=== PATIENT | female | born 1965 | race Caucasian/White ===

== ENCOUNTER 2018-01-16 13:24 | Inpatient (IN) | payer OTHER ==
[2018-01-16 16:18] VITALS: BMI 18.8
--- NOTE | 2018-01-16 20:16 | HP ---
COWS - Scale Resting Pulse: 1= [place] 81-100 Sweatin=Flushed/Facial Moisture Restless Observation: 5= Unable to Sit Still Pupil Size: 1= Pupils >than Normal Bone or Joint Aches: 4=Acute Joint/Muscle Pain Runny Nose/ Eye Tearin= Nasal Congestion GI Upset > 30mins: 2= Nausea/Diarrhea Tremor Observation: 1= Tremor [place], Not Seen Yawning Observation: 2= >3x During Session Anxiety or Irritability: 2=Irritable/Anxious Goose Flesh Skin: 0=Smooth Skin COWS Score: 21 Admission [facility] Chief Complaint: C/O WITHDRAWAL SX'S. SEEKING DETOX FOR HEROIN DEPENDENCE Allergies/Adverse Reactions: Allergies Allergy/AdvReac Type Severity Reaction Status Date / Time No Known Allergies Allergy Verified 01/16/18 20:10 History of Present Illness: 52 Y.O. FEMALE WITH LONG HX/O OPIOID DEPENDENCE HER FOR DETOX TXMENT. CLIENT REORTS LAST DETOX 6 MONTHS AGO. SHE IS NEW TO [facility]. DENIES ANY SIGNIFICANT PERIOD OF CLEAN TIME. SELF REFERRED. DENIES LEGALS - Ebola screening Have you traveled outside of the country in the last 21 days: No (N) Have you had contact with anyone from an Ebola affected area: No Have you been sick,other than usual withdrawal symptoms: No Do you have a fever: No - Review of Systems Constitutional: Chills, Loss of Appetite, Malaise, Night Sweats, Changes in sleep EENT: reports: Nose Congestion, Dental Problems (MISSING TEETH) Respiratory: reports: No Symptoms reported Cardiac: reports: No Symptoms Reported GI: reports: Nausea, Poor Appetite, Poor Fluid Intake, Abdominal cramping : reports: No Symptoms Reported Musculoskeletal: reports: Joint Pain, Neck Pain Integumentary: reports: No Symptoms Reported Neuro: reports: No Symptoms reported Endocrine: reports: No Symptoms Reported Hematology: reports: No Symptoms Reported Psychiatric: reports: Anxious, other (BIPOLAR) Other Systems: Reviewed and Negative Patient History - Patient Medical History Hx Anemia: No Hx Asthma: No Hx Chronic Obstructive Pulmonary Disease (COPD): No Hx Cancer: No Hx Cardiac Disorders: No Hx Congestive Heart Failure: No Hx Hypertension: No Hx Pacemaker: No HX Cerebrovascular Accident: No Hx Seizures: No Hx Dementia: No Hx Diabetes: No Hx Gastrointestinal Disorders: No Hx Liver Disease: No Hx Genitourinary Disorders: No Hx Sexually Transmitted Disorders: No Hx Renal Disease (ESRD): No Hx Thyroid Disease: No Hx Human Immunodeficiency Virus (HIV): No Hx Hepatitis C: No Hx Depression: No Hx Suicide Attempt: No Hx Bipolar Disorder: Yes (NON COMPLIANT WITH MEDS) Hx Schizophrenia: No Other Medical History: ANXIETY - Patient Surgical History Past Surgical History: No - PPD History Previous Implant?: Yes Documented Results: Negative w/o proof PPD to be Administered?: Yes - Reproductive History Patient is a Female of Child Bearing Age (11 -55 yrs old): Yes LMP comment: 2016 Patient : No ([place] [facility] [place] - Smoking Cessation Smoking history: Former smoker Have you smoked in the past 12 months: No Cigars Per Day: 0 Initiated information on smoking cessation: No - Substance & Tx. History Hx Alcohol Use: No Hx Substance Use: Yes Substance Use Type: Cocaine, Heroin Hx Substance Use Treatment: Yes ([facility]) - Substances Abused HEROIN Route: Inhalation Frequency: Daily Amount used: $50 Age of first use: 17 Date of Last Use: 01/15/18 COCAINE Route: Inhalation Frequency: 3-6 times per week Amount used: $20 Age of first use: 51 Date of Last Use: 01/15/18 Family Disease History - Family Disease History Family History: Denies Admission Physical Exam S - Vital Signs Vital Signs: Vital Signs - 24 hr 01/16/18 16:09 Temperature 97.8 F Pulse Rate 92 H Respiratory 18 Rate Blood Pressure 107/65 - Physical General Appearance: Yes: Appropriately Dressed, Mild Distress, Tremorous, Irritable, Anxious HEENTM: Yes: EOMI, Normocephalic, ECTOR, Pharynx Normal, Nasal Congestion, Other (MISSING TEETH) Respiratory: Yes: Chest Non-Tender, Lungs Clear, Normal Breath Sounds, No Respiratory Distress, No Accessory Muscle Use Neck: Yes: No masses,lesions,Nodules, Supple, Trachea in good position Breast: Yes: Breast Exam Deferred Cardiology: Yes: Regular Rhythm, Regular Rate, S1, S2 Abdominal: Yes: Normal Bowel Sounds, Non Tender, Flat, Soft Genitourinary: Yes: Within Normal Limits Back: Yes: Normal Inspection Musculoskeletal: Yes: full range of Motion, Gait Steady Extremities: Yes: Normal Range of Motion, Non-Tender, Tremors Neurological: Yes: manager call center II-XII NML intact, Fully Oriented, Alert, Motor Strength 5/5 Integumentary: Yes: Warm, Other (FLUSHED FACE) Lymphatic: Yes: Within Normal Limits - Diagnostic (1) Opioid dependence with withdrawal Current Visit: Yes Status: Chronic (2) Cocaine dependence, uncomplicated Current Visit: Yes Status: Chronic Cleared for Admission [facility] - Detox or Rehab [facility] Level of Care: Medically Managed Detox Regimen/Protocol: Methadone [facility] Breath Alcohol Content Breath Alcohol Content: 0 Urine Pregancy Test - Result Urine Test Results: Negative- NO Line Present Urine Drug Screen - Results Drug Screen Negative: No Urine Drug Screen Results: MARGRET-Cocaine, OPI-Opiates, BAR-Barbiturates
[2018-01-16] MEDS ORDERED: METHADONE HCL 10 MG TABLET (FOR DETOX USE ONLY) PO ONE ×2 (20:29→23:00)
[2018-01-16] MEDS ORDERED: LOPERAMIDE HCL 2 MG CAPSULE PO PRN (20:29)
[2018-01-16] MEDS ORDERED: MAGNESIUM HYDROX 2400MG/30ML ORAL SUSPENSION 30 ML CUP PO PRN (20:29)
[2018-01-16] MEDS ORDERED: P-EPHED 60MG/TRIPROLIDI 2.5MG TABLET PO PRN (20:29)
[2018-01-16] MEDS ORDERED: MENTHOL/PHENOL 1 EACH UD MM PRN (20:29)
[2018-01-16] MEDS ORDERED: IBUPROFEN 400 MG TABLET (FP) PO PRN (20:29)
[2018-01-16] MEDS ORDERED: MAG HYDROX/AL HYDROX/SIMETH 30 ML UNIT-DOSE CUP PO PRN (20:29)
[2018-01-16] MEDS ORDERED: guaiFENesin/D-METHORPHAN HB 10 ML UNIT-DOSE CUPS PO PRN (20:29)
[2018-01-16] MEDS ORDERED: MAGNESIUM CITRATE 300 ML BOTTLE PO PRN (20:29)
[2018-01-16] MEDS ORDERED: NICOTINE POLACRILEX 2 MG GUM BC PRN (20:29)
[2018-01-16] MEDS ORDERED: ACETAMINOPHEN 325 MG TABLET (FP) PO PRN (20:29)
[2018-01-16] MEDS: diazePAM 5 MG TABLET PO PRN (22:29)
[2018-01-16] MEDS: THIAMINE HCL 100 MG TABLET (FP) PO SCH (22:30)
[2018-01-17 00:36] LABS: URINE APPEARANCE TURBID; URINE BILIRUBIN NEGATIVE (NEGATIVE); URINE BLOOD NEGATIVE (NEGATIVE); URINE COLOR YELLOW; URINE GLUCOSE (UA) NEGATIVE (NEGATIVE); URINE KETONE NEGATIVE (NEGATIVE); URINE NITRITE NEGATIVE (NEGATIVE); URINE PROTEIN NEGATIVE (NEGATIVE); URINE UROBILINOGEN NEGATIVE mg/dL (0.2-1.0)
[2018-01-17 00:38] LABS: URINE LEUK ESTERASE 3+ (NEGATIVE)
[2018-01-17 00:45] LABS: EPI CELLS RARE /HPF (FEW); YEAST MANY
[2018-01-17] MEDS ORDERED: METHADONE HCL 10 MG TABLET (FOR DETOX USE ONLY) PO ONE (10:00)
[2018-01-17 10:04] LABS: HEMATOCRIT 34.2 % (32.4-45.2); HEMOGLOBIN 11.4 GM/dL (10.7-15.3); MCH 28.8 pg (25.7-33.7); MCHC 33.2 g/dl (32.0-36.0); MEAN CELL VOLUME 86.9 fl (80-96); MEAN PLT VOLUME 7.8 fl (7.5-11.1); PLATELET COUNT 216 K/MM3 (134-434); RBC 3.94 M/mm3 (3.60-5.2); RDW 13.5 % (11.6-15.6); WHITE BLOOD COUNT 3.6 K/mm3 (4.0-10.0)
[2018-01-17 10:13] LABS: ANION GAP 2 (8-16); BILIRUBIN,TOTAL 0.1 mg/dL (0.2-1.0); BLOOD UREA NITROGEN 23 mg/dL (7-18); CALCIUM 7.9 mg/dL (8.5-10.1); CHLORIDE 115 mmol/L (98-107); CO2 29 mmol/L (21-32); GLUCOSE,RANDOM 92 mg/dL (74-106); SODIUM 146 mmol/L (136-145)
[2018-01-17 10:15] LABS: ALK PHOS 75 U/L (45-117); CREATININE 0.7 mg/dL (0.55-1.02); SGOT/AST 9 U/L (15-37); SGPT/ALT 15 U/L (12-78); TOT PROT 5.3 g/dl (6.4-8.2)
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
[2018-01-17] MEDS: PRENATAL VITAMINS W/ FOLIC ACID TABLET (FP) PO SCH (10:58)
--- NOTE | 2018-01-17 14:02 | PN ---
BHS COWS - Scale Resting Pulse: 0= [place] 80 or Below Sweatin= Chills/Flushing Restless Observation: 3= Extraneous Movement Pupil Size: 1= Pupils >than Normal Bone or Joint Aches: 2= Severe Diffuse Aches Runny Nose/ Eye Tearin= Runny Nose/Eyes GI Upset > 30mins: 2= Nausea/Diarrhea Tremor Observation of Outstretched Hands: 2= Slight Tremor Visible Yawning Observation: 2= >3x During Session Anxiety or Irritability: 2=Irritable/Anxious Goose Flesh Skin: 3=Piloerection COWS Score: 20 BHS Progress Note (SOAP) Subjective: body aches joints pain sweat sleeplessness tremor restlessness anxiety irritable running nose Objective: 01/17/18 14:02 Vital Signs Temperature 98.1 F 01/17/18 10:00 Pulse Rate 73 01/17/18 10:00 Respiratory Rate 18 01/17/18 10:00 Blood Pressure 107/56 01/17/18 10:00 O2 Sat by Pulse Oximetry (%) Laboratory Last Values WBC 3.6 K/mm3 (4.0-10.0) L 01/17/18 07:20 RBC 3.94 M/mm3 (3.60-5.2) 01/17/18 07:20 Hgb 11.4 GM/dL (10.7-15.3) 01/17/18 07:20 Hct 34.2 % (32.4-45.2) 01/17/18 07:20 MCV 86.9 fl (80-96) 01/17/18 07:20 MCH 28.8 pg (25.7-33.7) 01/17/18 07:20 MCHC 33.2 g/dl (32.0-36.0) 01/17/18 07:20 RDW 13.5 % (11.6-15.6) 01/17/18 07:20 Plt Count 216 K/MM3 (134-434) 01/17/18 07:20 MPV 7.8 fl (7.5-11.1) 01/17/18 07:20 Sodium 146 mmol/L (136-145) H 01/17/18 07:20 Potassium 4.0 mmol/L (3.5-5.1) 01/17/18 07:20 Chloride 115 mmol/L (98-107) H 01/17/18 07:20 Carbon Dioxide 29 mmol/L (21-32) 01/17/18 07:20 Anion Gap 2 (8-16) L 01/17/18 07:20 BUN 23 mg/dL (7-18) H 01/17/18 07:20 Creatinine 0.7 mg/dL (0.55-1.02) 01/17/18 07:20 Creat Clearance w eGFR > 60 (>60) 01/17/18 07:20 Random Glucose 92 mg/dL (74-106) 01/17/18 07:20 Calcium 7.9 mg/dL (8.5-10.1) L 01/17/18 07:20 Total Bilirubin 0.1 mg/dL (0.2-1.0) L 01/17/18 07:20 AST 9 U/L (15-37) L 01/17/18 07:20 ALT 15 U/L (12-78) 01/17/18 07:20 Alkaline Phosphatase 75 U/L (45-117) 01/17/18 07:20 Total Protein 5.3 g/dl (6.4-8.2) L 01/17/18 07:20 Albumin 3.0 g/dl (3.4-5.0) L 01/17/18 07:20 Urine Color Yellow 01/17/18 00:01 Urine Appearance Turbid 01/17/18 00:01 Urine pH 5.0 (5.0-8.0) 01/17/18 00:01 Ur Specific [place] 1.032 (1.001-1.035) 01/17/18 00:01 Urine Protein Negative (NEGATIVE) 01/17/18 00:01 Urine Glucose (UA) Negative (NEGATIVE) 01/17/18 00:01 Urine Ketones Negative (NEGATIVE) 01/17/18 00:01 Urine Blood Negative (NEGATIVE) 01/17/18 00:01 Urine Nitrite Negative (NEGATIVE) 01/17/18 00:01 Urine Bilirubin Negative (NEGATIVE) 01/17/18 00:01 Urine Urobilinogen Negative mg/dL (0.2-1.0) 01/17/18 00:01 Ur Leukocyte Esterase 3+ (NEGATIVE) H 01/17/18 00:01 Urine WBC (Auto) 337 /hpf (3-5) 01/17/18 00:01 Urine RBC (Auto) 8 /hpf (0-3) 01/17/18 00:01 Ur Epithelial Cells Rare /HPF (FEW) 01/17/18 00:01 Urine Yeast Many 01/17/18 00:01 RPR Titer Nonreactive (NONREACTIVE) 01/17/18 07:20 lab noted Assessment: 01/17/18 14:05 withdrawal sx Plan: continue detox
--- NOTE | 2018-01-17 20:35 | EKG ---
Test Reason : Blood Pressure : / mmHG Vent. Rate : 071 BPM Atrial Rate : 071 BPM P-R Int : 136 ms QRS Dur : 086 ms QT Int : 430 ms P-R-T Axes : 051 061 061 degrees QTc Int : 467 ms NORMAL SINUS RHYTHM NORMAL ECG NO PREVIOUS ECGS AVAILABLE Confirmed by ZANE DHILLON MD ([id number]) on 01/17/2018 8:35:17 PM Referred By: Confirmed By:ZANE DHILLON MD
[2018-01-17] MEDS: THIAMINE HCL 100 MG TABLET (FP) PO SCH (22:57)
[2018-01-18] MEDS ORDERED: METHADONE HCL 5 MG TABLET (FOR DETOX USE ONLY) PO ONE (10:00)
[2018-01-18] MEDS: PRENATAL VITAMINS W/ FOLIC ACID TABLET (FP) PO SCH (10:33)
[2018-01-18] MEDS: diazePAM 5 MG TABLET PO PRN ×2 (10:33→22:21)
--- NOTE | 2018-01-18 10:37 | PN ---
BHS COWS - Scale Resting Pulse: 0= [place] 80 or Below Sweatin= Chills/Flushing Restless Observation: 3= Extraneous Movement Pupil Size: 1= Pupils >than Normal Bone or Joint Aches: 2= Severe Diffuse Aches Runny Nose/ Eye Tearin= Runny Nose/Eyes GI Upset > 30mins: 1= Stomach Cramp Tremor Observation of Outstretched Hands: 2= Slight Tremor Visible Yawning Observation: 2= >3x During Session Anxiety or Irritability: 2=Irritable/Anxious Goose Flesh Skin: 0=Smooth Skin COWS Score: 16 S Progress Note (SOAP) Subjective: body ache running nose sweat tremor restlessness irritable Objective: 01/18/18 10:39 Vital Signs Temperature 97.7 F 01/18/18 06:29 Pulse Rate 62 01/18/18 06:29 Respiratory Rate 16 01/18/18 06:30 Blood Pressure 123/57 01/18/18 06:29 O2 Sat by Pulse Oximetry (%) Laboratory Last Values WBC 3.6 K/mm3 (4.0-10.0) L 01/17/18 07:20 RBC 3.94 M/mm3 (3.60-5.2) 01/17/18 07:20 Hgb 11.4 GM/dL (10.7-15.3) 01/17/18 07:20 Hct 34.2 % (32.4-45.2) 01/17/18 07:20 MCV 86.9 fl (80-96) 01/17/18 07:20 MCH 28.8 pg (25.7-33.7) 01/17/18 07:20 MCHC 33.2 g/dl (32.0-36.0) 01/17/18 07:20 RDW 13.5 % (11.6-15.6) 01/17/18 07:20 Plt Count 216 K/MM3 (134-434) 01/17/18 07:20 MPV 7.8 fl (7.5-11.1) 01/17/18 07:20 Sodium 146 mmol/L (136-145) H 01/17/18 07:20 Potassium 4.0 mmol/L (3.5-5.1) 01/17/18 07:20 Chloride 115 mmol/L (98-107) H 01/17/18 07:20 Carbon Dioxide 29 mmol/L (21-32) 01/17/18 07:20 Anion Gap 2 (8-16) L 01/17/18 07:20 BUN 23 mg/dL (7-18) H 01/17/18 07:20 Creatinine 0.7 mg/dL (0.55-1.02) 01/17/18 07:20 Creat Clearance w eGFR > 60 (>60) 01/17/18 07:20 Random Glucose 92 mg/dL (74-106) 01/17/18 07:20 Calcium 7.9 mg/dL (8.5-10.1) L 01/17/18 07:20 Total Bilirubin 0.1 mg/dL (0.2-1.0) L 01/17/18 07:20 AST 9 U/L (15-37) L 01/17/18 07:20 ALT 15 U/L (12-78) 01/17/18 07:20 Alkaline Phosphatase 75 U/L (45-117) 01/17/18 07:20 Total Protein 5.3 g/dl (6.4-8.2) L 01/17/18 07:20 Albumin 3.0 g/dl (3.4-5.0) L 01/17/18 07:20 Urine Color Yellow 01/17/18 00:01 Urine Appearance Turbid 01/17/18 00:01 Urine pH 5.0 (5.0-8.0) 01/17/18 00:01 Ur Specific [place] 1.032 (1.001-1.035) 01/17/18 00:01 Urine Protein Negative (NEGATIVE) 01/17/18 00:01 Urine Glucose (UA) Negative (NEGATIVE) 01/17/18 00:01 Urine Ketones Negative (NEGATIVE) 01/17/18 00:01 Urine Blood Negative (NEGATIVE) 01/17/18 00:01 Urine Nitrite Negative (NEGATIVE) 01/17/18 00:01 Urine Bilirubin Negative (NEGATIVE) 01/17/18 00:01 Urine Urobilinogen Negative mg/dL (0.2-1.0) 01/17/18 00:01 Ur Leukocyte Esterase 3+ (NEGATIVE) H 01/17/18 00:01 Urine WBC (Auto) 337 /hpf (3-5) 01/17/18 00:01 Urine RBC (Auto) 8 /hpf (0-3) 01/17/18 00:01 Ur Epithelial Cells Rare /HPF (FEW) 01/17/18 00:01 Urine Yeast Many 01/17/18 00:01 RPR Titer Nonreactive (NONREACTIVE) 01/17/18 07:20 lab noted 01/18/18 10:41 begin bactrim ds bid increase oral fluid Assessment: 01/18/18 10:42 withdrawal sx uti Plan: continue detox begin bactrim ds bid increase oral fluid
[2018-01-18] MEDS: SULFAMETHOXAZOLE/TRIMETHOPRIM 800MG/160MG D.S. TABLET PO SCH ×2 (11:19→22:21)
[2018-01-18] MEDS: THIAMINE HCL 100 MG TABLET (FP) PO SCH (22:21)
[2018-01-19] MEDS ORDERED: METHADONE HCL 5 MG TABLET (FOR DETOX USE ONLY) PO ONE (10:00)
[2018-01-19] MEDS: PRENATAL VITAMINS W/ FOLIC ACID TABLET (FP) PO SCH (10:11)
[2018-01-19] MEDS: diazePAM 5 MG TABLET PO PRN (10:11)
[2018-01-19] MEDS: SULFAMETHOXAZOLE/TRIMETHOPRIM 800MG/160MG D.S. TABLET PO SCH ×2 (10:11→22:19)
--- NOTE | 2018-01-19 11:52 | PN ---
BHS Progress Note (SOAP) Subjective: body ache joint pain sweat tremor stuffy nose restlessness anxiety Objective: 01/19/18 11:51 Vital Signs Temperature 97.9 F 01/19/18 10:11 Pulse Rate 85 01/19/18 10:11 Respiratory Rate 20 01/19/18 10:11 Blood Pressure 119/68 01/19/18 10:11 O2 Sat by Pulse Oximetry (%) Laboratory Last Values WBC 3.6 K/mm3 (4.0-10.0) L 01/17/18 07:20 RBC 3.94 M/mm3 (3.60-5.2) 01/17/18 07:20 Hgb 11.4 GM/dL (10.7-15.3) 01/17/18 07:20 Hct 34.2 % (32.4-45.2) 01/17/18 07:20 MCV 86.9 fl (80-96) 01/17/18 07:20 MCH 28.8 pg (25.7-33.7) 01/17/18 07:20 MCHC 33.2 g/dl (32.0-36.0) 01/17/18 07:20 RDW 13.5 % (11.6-15.6) 01/17/18 07:20 Plt Count 216 K/MM3 (134-434) 01/17/18 07:20 MPV 7.8 fl (7.5-11.1) 01/17/18 07:20 Sodium 146 mmol/L (136-145) H 01/17/18 07:20 Potassium 4.0 mmol/L (3.5-5.1) 01/17/18 07:20 Chloride 115 mmol/L (98-107) H 01/17/18 07:20 Carbon Dioxide 29 mmol/L (21-32) 01/17/18 07:20 Anion Gap 2 (8-16) L 01/17/18 07:20 BUN 23 mg/dL (7-18) H 01/17/18 07:20 Creatinine 0.7 mg/dL (0.55-1.02) 01/17/18 07:20 Creat Clearance w eGFR > 60 (>60) 01/17/18 07:20 Random Glucose 92 mg/dL (74-106) 01/17/18 07:20 Calcium 7.9 mg/dL (8.5-10.1) L 01/17/18 07:20 Total Bilirubin 0.1 mg/dL (0.2-1.0) L 01/17/18 07:20 AST 9 U/L (15-37) L 01/17/18 07:20 ALT 15 U/L (12-78) 01/17/18 07:20 Alkaline Phosphatase 75 U/L (45-117) 01/17/18 07:20 Total Protein 5.3 g/dl (6.4-8.2) L 01/17/18 07:20 Albumin 3.0 g/dl (3.4-5.0) L 01/17/18 07:20 Urine Color Yellow 01/17/18 00:01 Urine Appearance Turbid 01/17/18 00:01 Urine pH 5.0 (5.0-8.0) 01/17/18 00:01 Ur Specific [place] 1.032 (1.001-1.035) 01/17/18 00:01 Urine Protein Negative (NEGATIVE) 01/17/18 00:01 Urine Glucose (UA) Negative (NEGATIVE) 01/17/18 00:01 Urine Ketones Negative (NEGATIVE) 01/17/18 00:01 Urine Blood Negative (NEGATIVE) 01/17/18 00:01 Urine Nitrite Negative (NEGATIVE) 01/17/18 00:01 Urine Bilirubin Negative (NEGATIVE) 01/17/18 00:01 Urine Urobilinogen Negative mg/dL (0.2-1.0) 01/17/18 00:01 Ur Leukocyte Esterase 3+ (NEGATIVE) H 01/17/18 00:01 Urine WBC (Auto) 337 /hpf (3-5) 01/17/18 00:01 Urine RBC (Auto) 8 /hpf (0-3) 01/17/18 00:01 Ur Epithelial Cells Rare /HPF (FEW) 01/17/18 00:01 Urine Yeast Many 01/17/18 00:01 RPR Titer Nonreactive (NONREACTIVE) 01/17/18 07:20 lab noted Assessment: 01/19/18 11:51 withdrawal sx Plan: continue detox
[2018-01-19] MEDS: THIAMINE HCL 100 MG TABLET (FP) PO SCH (22:19)
[2018-01-19] MEDS: hydrOXYzine PAMOATE 50 MG CAPSULE (FP) PO PRN (22:20)
[2018-01-20] MEDS ORDERED: METHADONE HCL 10 MG TABLET (FOR DETOX USE ONLY) PO ONE (10:00)
[2018-01-20] MEDS: PRENATAL VITAMINS W/ FOLIC ACID TABLET (FP) PO SCH (10:46)
[2018-01-20] MEDS: SULFAMETHOXAZOLE/TRIMETHOPRIM 800MG/160MG D.S. TABLET PO SCH ×2 (10:46→22:33)
--- NOTE | 2018-01-20 10:48 | PN ---
S Progress Note (SOAP) Subjective: alert oriented x 3 steady gait tolerates food and fluid well social with peers no tremor less sweat denies pain Objective: 01/20/18 10:47 Vital Signs Temperature 97.1 F L 01/20/18 06:25 Pulse Rate 66 01/20/18 06:25 Respiratory Rate 16 01/20/18 06:30 Blood Pressure 134/74 01/20/18 06:25 O2 Sat by Pulse Oximetry (%) Laboratory Last Values WBC 3.6 K/mm3 (4.0-10.0) L 01/17/18 07:20 RBC 3.94 M/mm3 (3.60-5.2) 01/17/18 07:20 Hgb 11.4 GM/dL (10.7-15.3) 01/17/18 07:20 Hct 34.2 % (32.4-45.2) 01/17/18 07:20 MCV 86.9 fl (80-96) 01/17/18 07:20 MCH 28.8 pg (25.7-33.7) 01/17/18 07:20 MCHC 33.2 g/dl (32.0-36.0) 01/17/18 07:20 RDW 13.5 % (11.6-15.6) 01/17/18 07:20 Plt Count 216 K/MM3 (134-434) 01/17/18 07:20 MPV 7.8 fl (7.5-11.1) 01/17/18 07:20 Sodium 146 mmol/L (136-145) H 01/17/18 07:20 Potassium 4.0 mmol/L (3.5-5.1) 01/17/18 07:20 Chloride 115 mmol/L (98-107) H 01/17/18 07:20 Carbon Dioxide 29 mmol/L (21-32) 01/17/18 07:20 Anion Gap 2 (8-16) L 01/17/18 07:20 BUN 23 mg/dL (7-18) H 01/17/18 07:20 Creatinine 0.7 mg/dL (0.55-1.02) 01/17/18 07:20 Creat Clearance w eGFR > 60 (>60) 01/17/18 07:20 Random Glucose 92 mg/dL (74-106) 01/17/18 07:20 Calcium 7.9 mg/dL (8.5-10.1) L 01/17/18 07:20 Total Bilirubin 0.1 mg/dL (0.2-1.0) L 01/17/18 07:20 AST 9 U/L (15-37) L 01/17/18 07:20 ALT 15 U/L (12-78) 01/17/18 07:20 Alkaline Phosphatase 75 U/L (45-117) 01/17/18 07:20 Total Protein 5.3 g/dl (6.4-8.2) L 01/17/18 07:20 Albumin 3.0 g/dl (3.4-5.0) L 01/17/18 07:20 Urine Color Yellow 01/17/18 00:01 Urine Appearance Turbid 01/17/18 00:01 Urine pH 5.0 (5.0-8.0) 01/17/18 00:01 Ur Specific [place] 1.032 (1.001-1.035) 01/17/18 00:01 Urine Protein Negative (NEGATIVE) 01/17/18 00:01 Urine Glucose (UA) Negative (NEGATIVE) 01/17/18 00:01 Urine Ketones Negative (NEGATIVE) 01/17/18 00:01 Urine Blood Negative (NEGATIVE) 01/17/18 00:01 Urine Nitrite Negative (NEGATIVE) 01/17/18 00:01 Urine Bilirubin Negative (NEGATIVE) 01/17/18 00:01 Urine Urobilinogen Negative mg/dL (0.2-1.0) 01/17/18 00:01 Ur Leukocyte Esterase 3+ (NEGATIVE) H 01/17/18 00:01 Urine WBC (Auto) 337 /hpf (3-5) 01/17/18 00:01 Urine RBC (Auto) 8 /hpf (0-3) 01/17/18 00:01 Ur Epithelial Cells Rare /HPF (FEW) 01/17/18 00:01 Urine Yeast Many 01/17/18 00:01 RPR Titer Nonreactive (NONREACTIVE) 01/17/18 07:20 01/20/18 10:48 lab noted continue bactrim Assessment: 01/20/18 10:50 mild withdrawal sx 01/20/18 10:51 uti Plan: medically supervised detox continue bactrim
[2018-01-20] MEDS: THIAMINE HCL 100 MG TABLET (FP) PO SCH (22:33)
[2018-01-20] MEDS: hydrOXYzine PAMOATE 50 MG CAPSULE (FP) PO PRN (22:33)
[2018-01-21] MEDS ORDERED: METHADONE HCL 5 MG TABLET (FOR DETOX USE ONLY) PO ONE (06:00)
[2018-01-21] MEDS: PRENATAL VITAMINS W/ FOLIC ACID TABLET (FP) PO SCH (10:19)
[2018-01-21] MEDS: SULFAMETHOXAZOLE/TRIMETHOPRIM 800MG/160MG D.S. TABLET PO SCH (10:19)
[2018-01-21 10:59] VITALS: BP 118/67; PULSE 77; TEMP 97.9
--- NOTE | 2018-01-21 11:41 | DS ---
[facility] Detox Discharge Summary Admission Date: 01/16/18 Discharge Date: 01/21/18 - History Present History: Opioid Dependence - Physical Exam Results Vital Signs: Vital Signs Temperature 97.9 F 01/21/18 10:58 Pulse Rate 77 01/21/18 10:58 Respiratory Rate 18 01/21/18 10:58 Blood Pressure 118/67 01/21/18 10:58 O2 Sat by Pulse Oximetry (%) Pertinent Admission Physical Exam Findings: withdrawal sx Vital Signs Temperature 97.9 F 01/21/18 10:58 Pulse Rate 77 01/21/18 10:58 Respiratory Rate 18 01/21/18 10:58 Blood Pressure 118/67 01/21/18 10:58 O2 Sat by Pulse Oximetry (%) Laboratory Last Values WBC 3.6 K/mm3 (4.0-10.0) L 01/17/18 07:20 RBC 3.94 M/mm3 (3.60-5.2) 01/17/18 07:20 Hgb 11.4 GM/dL (10.7-15.3) 01/17/18 07:20 Hct 34.2 % (32.4-45.2) 01/17/18 07:20 MCV 86.9 fl (80-96) 01/17/18 07:20 MCH 28.8 pg (25.7-33.7) 01/17/18 07:20 MCHC 33.2 g/dl (32.0-36.0) 01/17/18 07:20 RDW 13.5 % (11.6-15.6) 01/17/18 07:20 Plt Count 216 K/MM3 (134-434) 01/17/18 07:20 MPV 7.8 fl (7.5-11.1) 01/17/18 07:20 Sodium 146 mmol/L (136-145) H 01/17/18 07:20 Potassium 4.0 mmol/L (3.5-5.1) 01/17/18 07:20 Chloride 115 mmol/L (98-107) H 01/17/18 07:20 Carbon Dioxide 29 mmol/L (21-32) 01/17/18 07:20 Anion Gap 2 (8-16) L 01/17/18 07:20 BUN 23 mg/dL (7-18) H 01/17/18 07:20 Creatinine 0.7 mg/dL (0.55-1.02) 01/17/18 07:20 Creat Clearance w eGFR > 60 (>60) 01/17/18 07:20 Random Glucose 92 mg/dL (74-106) 01/17/18 07:20 Calcium 7.9 mg/dL (8.5-10.1) L 01/17/18 07:20 Total Bilirubin 0.1 mg/dL (0.2-1.0) L 01/17/18 07:20 AST 9 U/L (15-37) L 01/17/18 07:20 ALT 15 U/L (12-78) 01/17/18 07:20 Alkaline Phosphatase 75 U/L (45-117) 01/17/18 07:20 Total Protein 5.3 g/dl (6.4-8.2) L 01/17/18 07:20 Albumin 3.0 g/dl (3.4-5.0) L 01/17/18 07:20 Urine Color Yellow 01/17/18 00:01 Urine Appearance Turbid 01/17/18 00:01 Urine pH 5.0 (5.0-8.0) 01/17/18 00:01 Ur Specific [place] 1.032 (1.001-1.035) 01/17/18 00:01 Urine Protein Negative (NEGATIVE) 01/17/18 00:01 Urine Glucose (UA) Negative (NEGATIVE) 01/17/18 00:01 Urine Ketones Negative (NEGATIVE) 01/17/18 00:01 Urine Blood Negative (NEGATIVE) 01/17/18 00:01 Urine Nitrite Negative (NEGATIVE) 01/17/18 00:01 Urine Bilirubin Negative (NEGATIVE) 01/17/18 00:01 Urine Urobilinogen Negative mg/dL (0.2-1.0) 01/17/18 00:01 Ur Leukocyte Esterase 3+ (NEGATIVE) H 01/17/18 00:01 Urine WBC (Auto) 337 /hpf (3-5) 01/17/18 00:01 Urine RBC (Auto) 8 /hpf (0-3) 01/17/18 00:01 Ur Epithelial Cells Rare /HPF (FEW) 01/17/18 00:01 Urine Yeast Many 01/17/18 00:01 RPR Titer Nonreactive (NONREACTIVE) 01/17/18 07:20 lab noted uti treated with bactrim - Treatment Hospital Course: Detox Protocol Followed, Detoxed Safely, Responded well, Discharged Condition Good, Rehab Referral Accepted Patient has Accepted a Rehab Referral to: as per arranged by the counselor - Medication Discharge Medications: Ambulatory Orders Sulfamethoxazole/Trimethoprim [Bactrim DS -] 1 each PO BID #8 tablet 01/20/18 - AMA Did Patient Leave Against Medical Advice: No
== END 2018-01-21 12:19 | disposition home or self-care (01) | DRG 773 ==
LOC: YASAS 13:24 → Y6N 17:58
PROVIDERS: ADMIT Internal Medicine; ATTEND Internal Medicine
PROC: HZ2ZZZZ Detoxification Services for Substance Abuse Treatment (ICD-10-PCS; principal; 2018-01-16)
DX: F11.23 Opioid dependence with withdrawal (principal); F39 Unspecified mood [affective] disorder; F32.9 Major depressive disorder, single episode, unspecified; F41.9 Anxiety disorder, unspecified; Z91.14 Patient's other noncompliance with medication regimen; Z86.73 Personal history of transient ischemic attack (TIA), and cerebral infarction without residual deficits
CPT/HCPCS: 36415; 80053; 81003; 81015; 85027; 86593; 93005; 93010